=== PATIENT | male | born 1970 | race Caucasian/White ===

== ENCOUNTER 2017-12-01 09:40 | Emergency (ER) | payer OTHER ==
[~2017-12-01] VITALS: Ht 182.9 cm; Wt 76.5 kg
[2017-12-01 10:26] VITALS: BP 127/69
--- NOTE | 2017-12-01 10:28 | PHYS DOC ---
Adult General Chief Complaint Chief Complaint: Palpitations HPI HPI 47-year-old male presents with palpitations. The palpitations have been intermittent for the last few weeks. They generally last a few seconds up to 30 seconds. Patient presents today because he had feeling of heart flutter for over an hour. He had very mild shortness of breath with this episode. He denies chest pain. The patient denies heavy caffeine intake. He is not drinking energy drinks. He denies any recreational or prescription drug use. These palpitations have never prevented him from doing his daily activities. 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 He has no cardiac history. He denies any other symptoms of illness. No fever or chills. Review of Systems Review of Systems Constitutional: Denies fever or chills [] Eyes: Denies change in visual acuity, redness, or eye pain [] HENT: Denies nasal congestion or sore throat [] Respiratory: Mild shortness of breath [] Cardiovascular: No additional information not addressed in HPI [] GI: Denies abdominal pain, nausea, vomiting, bloody stools or diarrhea [] : Denies dysuria or hematuria [] Musculoskeletal: Denies back pain or joint pain [] Integument: Denies rash or skin lesions [] Neurologic: Denies headache, focal weakness or sensory changes [] Endocrine: Denies polyuria or polydipsia [] All other systems were reviewed and found to be within normal limits, except as documented in this note. Physical Exam Physical Exam Constitutional: Well developed, well nourished, no acute distress, non-toxic appearance. [] HENT: Normocephalic, atraumatic, bilateral external ears normal, oropharynx moist, no oral exudates, nose normal. [] Eyes: PERRLA, EOMI, conjunctiva normal, no discharge. [] Neck: Normal range of motion, no tenderness, supple, no stridor. [] Cardiovascular:Heart rate regular rhythm, no murmur [] Lungs & Thorax: Bilateral breath sounds clear to auscultation [] Abdomen: Bowel sounds normal, soft, no tenderness, no masses, no pulsatile masses. [] Skin: Warm, dry, no erythema, no rash. [] Back: No tenderness, no CVA tenderness. [] Extremities: No tenderness, no cyanosis, no clubbing, ROM intact, no edema. [] Neurologic: Alert and oriented X 3, normal motor function, normal sensory function, no focal deficits noted. [] Psychologic: Affect normal, judgement normal, mood normal. [] EKG EKG Sinus rhythm rate 66, normal axis, no ST elevations or depressions. Possibly prominent T waves.[] Radiology/Procedures Radiology/Procedures [] Impressions: Chest, PA and Lateral: Technique: PA and lateral views of the chest were obtained. History: Palpitations. Comparison: None. Findings: The heart size grossly appears unremarkable. Mild prominent appearing bilateral interstitial lung markings. Mild degenerative changes thoracic spine. IMPRESSION: Mild bilateral perihilar bronchospasm markings could be mild bronchitis. Electronically signed by: Jax Reynoso MD (12/01/2017 10:42 AM) [facility] DICTATED AND SIGNED BY: JAX REYNOSO MD DATE: 12/01/17 1041 CC: REBECCA CORTES DO; NON,STAFF Course & Med Decision Making Course & Med Decision Making Pertinent Labs and Imaging studies reviewed. (See chart for details) The patient's labs are unremarkable. His troponin is negative. His EKG is unremarkable. His chest x-ray shows possible mild bronchitis. The patient has not been symptomatic for this. On the monitor, the patient has had occasional PVCs, but no other abnormal findings. I believe he is safe to discharge at this time. He will follow-up with his PCP for further evaluation such as an event monitor. [] Dragon Disclaimer Dragon Disclaimer This electronic medical record was generated, in whole or in part, using a voice recognition dictation system. Departure Departure: Referrals: NON,STAFF (PCP) REBECCA CORTES DO Dec 01, 2017 10:28
[2017-12-01 10:32] LABS: BASO % 0 % (0-3); EOS # 0.1 x10^3/uL (0.0-0.7); EOS % 1 % (0-3); HEMATOCRIT 43.9 % (39.0-53.0); LYMPH # 1.6 x10^3/uL (1.0-4.8); LYMPH % 34 % (24-48); MEAN CORPUSCULAR HEMOGLOBIN 31 pg (25-35); MEAN CORPUSCULAR HGB CONC 34 g/dL (31-37); MEAN CORPUSCULAR VOLUME 90 fL (79-100); MONO # 0.4 x10^3/uL (0.0-1.1); MONO % 9 % (0-9); NEUT # 2.6 x10^3uL (1.8-7.7); NEUT % 56 % (31-73); PLATELET COUNT 217 x10^3/uL (140-400); RED BLOOD COUNT 4.89 x10^6/uL (4.30-5.70); RED CELL DISTRIBUTION WIDTH 13.1 % (11.5-14.5); WHITE BLOOD COUNT 4.7 x10^3/uL (4.0-11.0)
--- NOTE | 2017-12-01 10:45 | RAD ---
Chest, PA and Lateral: Technique: PA and lateral views of the chest were obtained. History: Palpitations. Comparison: None. Findings: The heart size grossly appears unremarkable. Mild prominent appearing bilateral interstitial lung markings. Mild degenerative changes thoracic spine. IMPRESSION: Mild bilateral perihilar bronchospasm markings could be mild bronchitis. Electronically signed by: Jax Reynoso MD (12/01/2017 10:42 AM) [facility]
[2017-12-01 10:47] LABS: ALBUMIN 3.6 g/dL (3.4-5.0); ALBUMIN/GLOBULIN RATIO 1.3 (1.0-1.7); CALCIUM 8.9 mg/dL (8.5-10.1); CREATININE 0.9 mg/dL (0.7-1.3); GFR 90.4; POTASSIUM 4.3 mmol/L (3.5-5.1); TOTAL BILIRUBIN 0.4 mg/dL (0.2-1.0); TOTAL PROTEIN 6.4 g/dL (6.4-8.2)
== END 2017-12-01 11:50 | disposition home or self-care (01) ==
LOC: ER 09:40
DX: R00.2 Palpitations (principal); R06.02 Shortness of breath; I49.3 Ventricular premature depolarization
CPT/HCPCS: 36415; 71046; 80053; 84484; 85025; 99285